=== PATIENT | female | born 1975 | race Caucasian/White ===

== ENCOUNTER 2020-05-18 10:30 | Emergency (ER) | payer MEDICARE, MEDICAID ==
[~2020-05-18] VITALS: Ht 165.1 cm; Wt 82.0 kg
[2020-05-18] MEDS ORDERED: KETOROLAC 30MG/ML VIAL IV STA (11:16)
[2020-05-18] MEDS ORDERED: SODIUM CHLORIDE 0.9% 1,000 ML IV ONE (11:30)
[2020-05-18 12:00] LABS: EOSINOPHILS % 6.8 % (0.0-5.0); HEMATOCRIT. 39.5 % (36.0-48.0); HEMOGLOBIN. 13.6 g/dL (12.0-16.0); LYMPHOCYTES % 25.2 % (20.0-50.0); MEAN CORPUSCULAR HEMOGLOBIN 30.5 pg (28.0-32.0); MEAN CORPUSCULAR VOLUME 88.4 fL (81.0-99.0); MEAN PLATELET VOLUME 7.9 fl (7.4-10.4); MONOCYTES % 3.6 % (2.0-8.0); NEUTROPHILS % 63.4 % (40.0-76.0); PLATELET 318 x1000/uL (130-400); RED BLOOD CELL COUNT 4.47 mill/uL (4.2-5.4); RED CELL DISTRIBUTION WIDTH 13.4 % (11.6-14.6)
[2020-05-18 12:11] LABS: CHLORIDE 105 mEq/L (98-107)
[2020-05-18 12:22] LABS: HCG SCREEN NEGATIVE
[2020-05-18] MEDS ORDERED: HYDROCODONE/ACETAMINOPHEN 5/325MG TABLET PO ONE (14:15)
[2020-05-18 16:45] VITALS: BP 128/75
== END 2020-05-18 16:45 | disposition home or self-care (01) ==
LOC: ER 11:19
DX: R07.89 Other chest pain (principal)
CPT/HCPCS: 36415; 71045; 80053; 81025; 83880; 84484; 84703; 85025; 93005; 96361; 96374; 99285; J1885; J7030

== ENCOUNTER 2021-12-04 10:31 | Emergency (ER) | payer MEDICARE, MEDICAID ==
[~2021-12-04] VITALS: Ht 157.5 cm; Wt 75.0 kg
[2021-12-04] MEDS ORDERED: BACITRACIN ZINC OINT UDPKT TOP ONE (13:00)
[2021-12-04] MEDS ORDERED: TETANUS, DIPHTHERIA, PERTUSSIS VAC/PF 0.5ML (>10YR OLD) IM ONE (13:00)
[2021-12-04] MEDS ORDERED: LIDOCAINE HCL/PF 1% 10 MG/ML 5ML VIAL INFIL ONE (13:00)
[2021-12-04] MEDS ORDERED: HYDROCODONE/ACETAMINOPHEN 5/325MG TABLET PO ONE (13:00)
[2021-12-04] MEDS ORDERED: IBUP-2030 MT (13:20)
[2021-12-04] MEDS ORDERED: SULF1TAB48 MT (13:20)
[2021-12-04] MEDS ORDERED: CEPH500C2 MT (13:20)
[2021-12-04] MEDS ORDERED: LIDOCAINE HCL 1% 10 MG/ML 10ML VIAL IJ NR (13:30)
[2021-12-04 14:21] VITALS: BP 129/78
== END 2021-12-04 14:22 | disposition home or self-care (01) ==
LOC: ER 10:31
DX: R10.30 Lower abdominal pain, unspecified (principal)
CPT/HCPCS: 90715; 99284; J3490

== ENCOUNTER 2022-05-04 10:53 | Emergency (ER) | payer MEDICAID, MEDICARE ==
[~2022-05-04] VITALS: Ht 162.6 cm; Wt 73.0 kg
[~2022-05-04 10:53] MED LIST: CEPH500C2 MT; IBUP-2030 MT; SULF1TAB48 MT
[2022-05-04] MEDS ORDERED: SULF1TAB48 MT (14:46)
[2022-05-04] MEDS ORDERED: IBUP-2029 MT (14:46)
[2022-05-04 15:22] VITALS: BP 137/89
== END 2022-05-04 15:23 | disposition home or self-care (01) ==
LOC: ER 12:25
DX: N76.0 Acute vaginitis (principal); Z91.048 Other nonmedicinal substance allergy status
CPT/HCPCS: 82962; 99284

== ENCOUNTER 2022-11-10 09:05 | Emergency (ER) | payer MEDICARE ==
[~2022-11-10] VITALS: Ht 165.1 cm; Wt 70.3 kg
[~2022-11-10 09:05] MED LIST changes: +IBUP-2029 MT
[2022-11-10 09:09] VITALS: BP 116/85
== END 2022-11-10 11:36 | disposition home or self-care (01) ==
LOC: ER 09:23
DX: H11.32 Conjunctival hemorrhage, left eye (principal); Z79.899 Other long term (current) drug therapy
CPT/HCPCS: 82962; 99281; 99282

== ENCOUNTER 2022-11-19 07:43 | Emergency (ER) | payer MEDICARE ==
[~2022-11-19] VITALS: Ht 157.5 cm; Wt 68.0 kg
[2022-11-19 07:47] VITALS: BP 148/97
== END 2022-11-19 09:21 | disposition home or self-care (01) ==
LOC: ER 07:43
DX: Z00.00 Encounter for general adult medical examination without abnormal findings (principal)
CPT/HCPCS: 99281

== ENCOUNTER 2023-05-30 11:05 | Emergency (ER) | payer MEDICAID, MEDICARE, OTHER ==
[~2023-05-30] VITALS: Ht 157.5 cm; Wt 80.0 kg
[2023-05-30 11:17] VITALS: BP 127/87; PULSE 87; RESP 16; TEMP 98.5; O2SAT 100
[2023-05-30 11:55] LABS: CLARITY URINE CLEAR (CLEAR); COLOR URINE YELLOW (YELLOW); GLUCOSE URINE NEGATIVE (NEGATIVE); KETONES URINE NEGATIVE (NEGATIVE); LEUKOCYTE ESTERASE URINE TRACE (NEGATIVE); NITRITE URINE NEGATIVE (NEGATIVE); OCCULT BLOOD URINE NEGATIVE (NEGATIVE); PROTEIN URINE NEGATIVE (NEGATIVE); UROBILINOGEN URINE 0.2 E.U./dL (0.2-1.0)
[2023-05-30 11:58] LABS: SQUAMOUS EPITHELIAL CELL URINE 1+ /lpf (RARE/1+); YEAST URINE NONE SEEN
[2023-05-30 12:19] LABS: BACTERIA URINE 1+; RBC URINE 0-2 /hpf (0-2)
== END 2023-05-30 14:50 | disposition home or self-care (01) ==
LOC: ER 13:55
DX: R07.81 Pleurodynia (principal)
CPT/HCPCS: 71045; 81003; 81025; 93005; 99285

== ENCOUNTER 2023-11-10 13:48 | Emergency (ER) | payer MEDICARE, MEDICAID ==
[~2023-11-10] VITALS: Ht 165.1 cm; Wt 91.0 kg
[2023-11-10 13:53] VITALS: O2SAT 98
[2023-11-10 15:11] VITALS: BP 161/91; PULSE 72; RESP 18; TEMP 98.4
== END 2023-11-10 16:01 | disposition home or self-care (01) ==
LOC: ER 13:48
DX: I10 Essential (primary) hypertension (principal); Z79.899 Other long term (current) drug therapy
CPT/HCPCS: 99281

== ENCOUNTER 2024-11-29 10:16 | Emergency (ER) | payer MEDICARE, MEDICAID ==
[~2024-11-29] VITALS: Ht 165.1 cm; Wt 85.0 kg
[2024-11-29 10:22] VITALS: O2SAT 100
[2024-11-29 11:06] LABS: CLARITY URINE CLEAR (CLEAR); COLOR URINE YELLOW (YELLOW); GLUCOSE URINE NEGATIVE (NEGATIVE); KETONES URINE NEGATIVE (NEGATIVE); LEUKOCYTE ESTERASE URINE 1+ (NEGATIVE); NITRITE URINE NEGATIVE (NEGATIVE); OCCULT BLOOD URINE NEGATIVE (NEGATIVE); PH URINE 5.5 (4.5-8.0); PROTEIN URINE NEGATIVE (NEGATIVE); SPECIFIC GRAVITY URINE 1.009 (1.005-1.030); UROBILINOGEN URINE 0.2 E.U./dL (0.2-1.0)
[2024-11-29 11:07] LABS: CHLORIDE 106 mEq/L (98-107); POTASSIUM 3.9 mEq/L (3.5-5.1); SODIUM 142 mEq/L (136-145)
[2024-11-29 11:08] LABS: BASOPHILS % 0.5 % (0.0-2.0); CARBON DIOXIDE 29 mEq/L (21-32); EOSINOPHILS % 2.1 % (0.0-5.0); HEMATOCRIT. 39.5 % (36.0-48.0); HEMOGLOBIN. 13.1 g/dL (12.0-16.0); MEAN CORPUSCULAR HEMOGLOBIN 29.2 pg (28.0-32.0); MEAN CORPUSCULAR HGB CONC 33.2 g/dL (31.0-37.0); MEAN CORPUSCULAR VOLUME 88.1 fL (81.0-99.0); MEAN PLATELET VOLUME 7.6 fl (7.4-10.4); NEUTROPHILS % 67.4 % (40.0-76.0); PLATELET 318 x1000/uL (130-400); RED BLOOD CELL COUNT 4.48 mill/uL (4.2-5.4); RED CELL DISTRIBUTION WIDTH 13.3 % (11.6-14.6); WHITE BLOOD COUNT 8.1 x1000/uL (4.5-11.0)
[2024-11-29 11:13] LABS: CREATININE 0.8 mg/dL (0.6-1.0); GLUCOSE 83 mg/dL (70-105); UREA NITROGEN BLOOD 8 mg/dL (9-23)
[2024-11-29 11:20] LABS: BACTERIA URINE TRACE; RBC URINE 0-2 /hpf (0-2); SQUAMOUS EPITHELIAL CELL URINE 2+ /lpf (RARE/1+); YEAST URINE NONE SEEN
[2024-11-29] MEDS: CEPHALEXIN 250MG CAPSULE PO ONE (11:21)
[2024-11-29] MEDS: MECLIZINE 25MG TABLET PO ONE (11:21)
[2024-11-29] MEDS ORDERED: CEPH500C2 MT (12:23)
[2024-11-29 12:34] VITALS: BP 160/78; PULSE 66; RESP 16; TEMP 37; O2SAT 100
== END 2024-11-29 12:34 | disposition home or self-care (01) ==
LOC: ER 10:16
DX: N39.0 Urinary tract infection, site not specified (principal); R53.1 Weakness
CPT/HCPCS: 99283; 80048; 81003; 81025; 82962; 85025; 36415; J8597

== ENCOUNTER 2025-02-10 09:59 | Emergency (ER) | payer MEDICARE, MEDICAID ==
[~2025-02-10] VITALS: Ht 165.1 cm; Wt 85.0 kg
[2025-02-10 10:07] VITALS: O2SAT 97
[2025-02-10] MEDS ORDERED: CARB-274 EACH EAR (10:21)
[2025-02-10 10:27] VITALS: BP 150/85; PULSE 77; RESP 18; TEMP 36.7; O2SAT 97
== END 2025-02-10 10:35 | disposition home or self-care (01) ==
LOC: ER 09:59
DX: H61.21 Impacted cerumen, right ear (principal); Z91.048 Other nonmedicinal substance allergy status; Z79.899 Other long term (current) drug therapy
CPT/HCPCS: 99282